=== PATIENT | female | born 1990 | race Caucasian/White ===

== ENCOUNTER → 2017-07-05 | Outpatient (CLI) | payer BC ==
[~2017-07-05] MED LIST: CEPH250REC PO; HYCE0.1S PO; IBUP1TAB7 PO; IBUP80TA PO; MOM30SS PO; PERCOCET PO
== END ==
LOC: M LAB 09:11
PROVIDERS: ATTEND Obstetrics & Gynecology Gynecology
DX: Z15.01 Genetic susceptibility to malignant neoplasm of breast (principal); Z15.02 Genetic susceptibility to malignant neoplasm of ovary

== ENCOUNTER → 2017-07-06 | Outpatient (CLI) | payer BC ==
--- NOTE | 2017-07-06 15:33 | REP ---
PELVIC ULTRASOUND: Real-time sonographic evaluation of the pelvis performed utilizing transabdominal and endovaginal technique. The bladder measures 10.7 x 8.4 x 9.2 cm. The uterus measures 9.1 x 2.9 x 5.3 cm. Endometrial thickness is 3 mm. There is no endometrial fluid collection. Ovaries appear normal in size and echotexture, right ovary measuring 3.1 x 2.0 x 1.5 cm and left ovary 3.6 x 2.7 x 2.8 cm. There is no adnexal mass or free fluid. Blood flow is seen in each ovary with duplex Doppler evaluation, right ovary 0.59 and left ovary 0.63. IMPRESSION: Negative pelvic ultrasound. No ovarian mass. No free fluid. Signed by Perfecto Farah MD 07/06/2017 04:14 P
== END ==
LOC: M RAD 12:47
PROVIDERS: ATTEND Obstetrics & Gynecology Gynecology
DX: Z15.02 Genetic susceptibility to malignant neoplasm of ovary (principal)

== ENCOUNTER → 2017-08-09 | Outpatient (REF) | payer SELFPAY ==
[2017-08-09 12:32] LABS: CONTROL LINE UCG INT CTR LINE PRESENT
== END ==
LOC: M LAB REF 11:53
PROVIDERS: ATTEND Physician Assistant Medical
DX: R10.84 Generalized abdominal pain (principal)

== ENCOUNTER → 2017-08-14 | Outpatient (CLI) | payer BC ==
--- NOTE | 2017-08-14 09:27 | REP ---
ULTRASOUND ABDOMEN: Real-time sonographic evaluation of the abdomen performed. Gallbladder demonstrates no evidence of intraluminal sludge or calculi, wall thickening, or pericholecystic fluid. There is no intrahepatic or extrahepatic biliary dilatation, common bile duct measuring 4 mm in diameter. The liver and pancreas demonstrate no gross mass, pancreatic tail is not well seen due to overlying bowel gas. Spleen is normal in size with no intrinsic abnormality, length is 12.0 cm. Kidneys are normal in size and echotexture, right kidney measuring 12.1 x 4.7 x 3.8 cm and left kidney 11.9 x 4.6 x 4.9 cm. Abdominal aorta is normal in caliber with no aneurysm, proximally AP diameter is 1.7 cm, mid aspect 1.4 cm and distally 1.1 cm. No free fluid is seen. IMPRESSION: Negative abdominal ultrasound. Signed by Perfecto Farah MD 08/14/2017 01:22 P
== END ==
LOC: M RAD 07:18
PROVIDERS: ATTEND Physician Assistant Medical
DX: R10.84 Generalized abdominal pain (principal)

== ENCOUNTER → 2018-04-19 | Outpatient (CLI) | payer OTHER ==
[2018-04-19 12:47] LABS: BASO % 0.4 % (0.0-1.0); EOS # 0.1 10^3/uL (0.0-0.50); EOS % 1.2 % (0.0-3.0); HEMATOCRIT 33.9 % (36.0-47.0); HEMOGLOBIN 11.9 g/dl (12.0-15.5); IMMATURE GRANULOCYTE % 0.3 % (0-3.0); LYMPH % 27.1 % (24.0-44.0); MEAN CORPUSCULAR HEMOGLOBIN 30.1 pg (27.0-33.0); MEAN CORPUSCULAR HGB CONC 35.1 g/dl (32.0-36.5); MEAN CORPUSCULAR VOLUME 85.6 fl (80.0-96.0); MONO # 0.5 10^3/uL (0.0-0.8); NEUTROPHILS # 4.9 10^3/uL (1.8-7.7); PLATELET COUNT, AUTOMATED 298 10^3/uL (150-450); RED BLOOD COUNT 3.96 10^6/uL (4.00-5.40); RED CELL DISTRIBUTION WIDTH 12.2 % (11.5-14.5); WHITE BLOOD COUNT 7.5 10^3/uL (4.0-10.0)
[2018-04-19 13:18] LABS: HBsAg Prenatal NEGATIVE (NEGATIVE); RUBELLA IgG QUALITATIVE IMMUNE (IMMUNE)
[2018-04-19 13:46] LABS: HEPATITIS C VIRUS ABY INDEX 0.1 INDEX (<0.8)
[2018-04-19 13:47] LABS: HIV 1&2 SCREEN CENTAUR NEGATIVE (NEGATIVE)
[2018-04-19 15:59] LABS: CHLAMYDIA DNA AMPLIFICATION NEGATIVE (NEGATIVE); GC DNA AMPLIFICATION NEGATIVE (NEGATIVE)
== END ==
LOC: M SMT 11:07
DX: Z36.89 Encounter for other specified antenatal screening (principal); Z3A.08 8 weeks gestation of pregnancy
CPT/HCPCS: 86762

== ENCOUNTER → 2018-06-04 | Outpatient (CLI) | payer OTHER, MEDICAID | LOC: M RAD 14:53 | DX: Z34.82 Encounter for supervision of other normal pregnancy, second trimester (principal) ==

== ENCOUNTER → 2018-06-25 | Outpatient (CLI) | payer OTHER, MEDICAID | LOC: M RAD 15:33 | DX: Z34.82 Encounter for supervision of other normal pregnancy, second trimester (principal); Z36.89 Encounter for other specified antenatal screening; Z3A.21 21 weeks gestation of pregnancy ==

== ENCOUNTER 2018-08-12 13:01 | Outpatient (RCR) | payer OTHER, MEDICAID | END 2018-08-30 | LOC: M ST 08-16 12:30 | DX: R49.0 Dysphonia (principal) ==

== ENCOUNTER → 2018-08-12 | Outpatient (CLI) | payer OTHER, MEDICAID ==
[2018-08-12 13:12] LABS: HEMATOCRIT 30.3 % (36.0-47.0); HEMOGLOBIN 10.4 g/dl (12.0-15.5); MEAN CORPUSCULAR HEMOGLOBIN 30.3 pg (27.0-33.0); MEAN CORPUSCULAR HGB CONC 34.3 g/dl (32.0-36.5); MEAN CORPUSCULAR VOLUME 88.3 fl (80.0-96.0); PLATELET COUNT, AUTOMATED 240 10^3/uL (150-450); RED BLOOD COUNT 3.43 10^6/uL (4.00-5.40); RED CELL DISTRIBUTION WIDTH 12.3 % (11.5-14.5); WHITE BLOOD COUNT 10.2 10^3/uL (4.0-10.0)
[2018-08-12 13:32] LABS: GLUCOSE CHALLENGE TEST 1 HOUR 134 MG/DL (LESS THAN 140)
== END ==
LOC: M LAB 11:46
DX: Z34.82 Encounter for supervision of other normal pregnancy, second trimester (principal); Z3A.00 Weeks of gestation of pregnancy not specified
CPT/HCPCS: 82950

== ENCOUNTER → 2018-10-04 | Outpatient (REF) | payer OTHER, MEDICAID ==
[~2018-10-04] MED LIST changes: +PRENTAB29 PO
== END ==
LOC: M LAB REF 17:13
PROVIDERS: ATTEND Obstetrics & Gynecology
DX: Z34.83 Encounter for supervision of other normal pregnancy, third trimester (principal)

== ENCOUNTER 2018-10-27 06:45 | Inpatient (IN) | payer OTHER, MEDICAID ==
[~2018-10-27] VITALS: Ht 160 cm; Wt 79.6 kg
[2018-10-27] VITALS (9 sets, daily range): BP systolic 110–139; BP diastolic 56–84
[2018-10-27] MEDS ORDERED: ceFAZolin 2 GM/D5W 50 ML IV BAG (J0690 PER 500MG) As Ordered ONE (07:11)
[2018-10-27] MEDS ORDERED: BICITRA 30ML SOLN UDC As Ordered ONE (07:11)
[2018-10-27] MEDS ORDERED: BICITRA 30ML SOLN UDC PO ONE (07:30)
[2018-10-27 07:34] LABS: HEMATOCRIT 30.9 % (36.0-47.0); HEMOGLOBIN 10.1 g/dl (12.0-15.5); MEAN CORPUSCULAR HEMOGLOBIN 26.6 pg (27.0-33.0); MEAN CORPUSCULAR HGB CONC 32.7 g/dl (32.0-36.5); MEAN CORPUSCULAR VOLUME 81.5 fl (80.0-96.0); PLATELET COUNT, AUTOMATED 218 10^3/uL (150-450); RED BLOOD COUNT 3.79 10^6/uL (4.00-5.40); WHITE BLOOD COUNT 8.9 10^3/uL (4.0-10.0)
[2018-10-27] MEDS ORDERED: BUTORPHANOL 2 MG/ML INJ (J0595) IV ONE (08:00)
--- NOTE | 2018-10-27 09:39 | NUR ---
L&D H&P HPI: 28 year old at 39+0 weeks estimated gestation. Expected date of confinement: 11/03/2018. dated by LMP, which was consistent with a first trimester ultrasound. Presents today with painful uterine contractions and spontaneous rupture of membranes, clear fluid noted approximately 1 hour rosie or to her arrival. Denies vaginal bleeding. Reports regular movement. course notable for history of one prior low transverse section and she is declining a trial of labor. labs: Blood type O+, antibody screen negative, rubella immune, VDRL nonreactive , hepatitis B surface antigen negative, HIV negative, hepatitis C antibody negative, GC/CT negative, aneuploidy/maternal serum screening: Not done, 1 hour glucose challenge test: 134, GBS negative Vaccinations: Tdap 09/18/2018 Radiology/OB US: no anomalies or placental abnormalities detected. History Past medical history: None, BRCA1 carrier Surgical history: Low transverse section 1, D&C, tonsillectomy Medications:. 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 No tobacco, alcohol or drug use Family history:. BRCA1 Objective Vitals: Normotensive, normal heart rate, afebrile Heart: Regular rate and rhythm. No murmurs, rubs or gallops. Lungs: Clear to auscultation bilaterally. No wheezes, crackles, rales or rhonchi. Abdomen: Uterine fundal height consistent with dates. No guarding or rebound tenderness. Extremities: No clubbing, cyanosis or edema. Normal deep tendon reflexes. Sterile vaginal exam: 2 cm, 50 %effacement, -3 station, cephalic, grossly ruptured with clear fluid. +nitrazine & ferning External monitoring: heart rate category 1 Tocodynamometer: contractions occurring every 2-5 minutes Assessment/Plan 28 year old at 39+0 weeks gestation. Diagnosis: Spontaneous rupture of membranes, early labor. Reassuring and maternal status. -Admit to labor and delivery with routine preop labs and orders -External monitoring and tocodynamometer -Pediatrics and anesthesia notified -Preparations for the OR are being made Dr. Derrick Garcia, DO, FACOG
[2018-10-27] MEDS ORDERED: BUPIVACAINE/DEXTROSE 0.75% 2 ML AMP As Ordered ONE (10:20)
[2018-10-27] MEDS ORDERED: diphenhydrAMINE INJ 50MG/ML VIAL (J1200) IV PRN (10:25)
[2018-10-27] MEDS ORDERED: NALBUPHINE HCL 10 MG/ML AMP (J2300) IV PRN (10:25)
[2018-10-27] MEDS ORDERED: NALOXONE INJ 0.4 MG/1 ML VIAL (J2310) IV PRN ×2 (10:25)
[2018-10-27] MEDS ORDERED: ONDANSETRON 4MG/2ML VIAL (J2405) IV PRN ×2 (10:25→11:45)
[2018-10-27] MEDS ORDERED: METOCLOPRAMIDE INJ 10MG/2ML VIAL (J2765) IV PRN (10:25)
[2018-10-27] MEDS ORDERED: AZITHROMYCIN INJ 500 MG, VIAL MATE ADAPTER 1 EACH in D5W 250 ML IV ONE (11:00)
[2018-10-27] MEDS ORDERED: PHENYLephrine HCL 500 MCG/5 ML (100MCG/ML) SYRINGE (J2370) As Ordered ONE (11:02)
[2018-10-27] MEDS ORDERED: dexameTHASONE 4 MG/ML 1ML VIAL (J1100) As Ordered ONE (11:02)
[2018-10-27] MEDS ORDERED: ONDANSETRON 4MG/2ML VIAL (J2405) As Ordered ONE (11:02)
[2018-10-27] MEDS ORDERED: MORPHINE PRES-FREE INJ 10 MG/10 ML VIAL (J2274) As Ordered ONE (11:02)
[2018-10-27] MEDS ORDERED: OXYTOCIN INJ 10 UNITS/ML VIAL (J2590) As Ordered ONE (11:03)
[2018-10-27] MEDS: LR 1,000 ML IV SCH ×2 (11:36→19:36)
[2018-10-27] MEDS ORDERED: OXYTOCIN DRIP 30 UNITS in APPROPRIATE DILUENT 1 EA IV SCH (11:36)
[2018-10-27] MEDS ORDERED: PERCOCET PO (11:40)
[2018-10-27] MEDS ORDERED: COLA100C5 PO (11:42)
[2018-10-27] MEDS ORDERED: IBUP80TA PO (11:42)
[2018-10-27] MEDS ORDERED: MEASLES,MUMPS,RUBELLA VACCINE INJ (MMR-II) (90707) SC SCH (11:45)
[2018-10-27] MEDS ORDERED: PROMETHAZINE 25 MG TAB PO PRN (11:45)
[2018-10-27] MEDS ORDERED: PERCOCET 5MG/325MG TAB PO PRN (11:45)
[2018-10-27] MEDS ORDERED: RHOGAM 300 MCG (1500 IU) INJ (J2790) IM SCH (11:45)
--- NOTE | 2018-10-27 11:46 | NUR ---
Operative Note Date of procedure: 10/27/2018 Procedure:, Elective repeat low-transverse section Anesthesia: Spinal Preoperative diagnoses: 1. 39+0 weeks gestation, early active labor with ruptured membranes. 2. Declines trial of labor Postoperative diagnosis: Same as preoperative Indication: History of previous low transverse section, active labor, declines TOLAC Primary surgeon: Derrick Garcia D.O., Romeo Asif Addictions Counselor Assistant: Deandre Garcia MD (essential for surgical site exposure and control of bleeding) Estimated blood loss: 500 ml IV fluids administered: 700 ml crystalloid Drains: Meraz catheter. Urine output:120 ml [place] data: Apgars 9 and 9. Birthweight 3980g, 8lbs 12oz. Female. Preoperative/prophylactic antibiotics: Ancef 2 g IV (given within 30 minutes prior to surgical start time). Azithromycin 500mg IV x 1. Intraoperative findings: normal uterus and bilateral adnexa/ovaries, minimal adhesive disease. Specimen(s): none Procedure: The patient was counseled and consented on the risks, benefits, indications and alternatives of the procedure. Informed consent was obtained and placed in the c mosquera. She was taken to the operating room with an IV running. She was placed on the operating table. Spinal anesthesia was administered without any difficulty and found to be adequate. She was placed in the dorsal supine position with a leftward tilt. Sequential compression devices were placed on the lower extremities. A Meraz catheter was placed under sterile conditions. She was sterilely prepped and draped. A surgical timeout was performed per protocol. Spinal anesthesia was again found to be adequate. Using the 10 blade a Pfannenstiel incision was performed. The 10 blade was used to dissect down to the level of the rectus sheath fascia. The rectus sheath fas hilda was incised at the midline, and the fascial incision was extended with Agee scissors. [place] clamps were used to grasp the superior and inferior aspect of the fascial incision and the rectus muscle bellies were dissected off sharply and bluntly. The midline was identified and the rectus muscle bellies were manually . The peritoneum was identified and clamped with hemostats and elevated. The peritoneum was then incised with Metzenbaum scissors. Entry into the intraperitoneal cavity was achieved. The peritoneal op ening was extended with manual stretch . There was good visualization of both the bladder and the lower uterine segment. The bladder retractor was placed. The vesicouterine peritoneum was dissected with Metzenbaum scissors and blunt dissection. Bladder retractor was repositioned. A low transverse uterine incision was made with a new 10 blade. The hysterotomy was extended with manual stretch. The amniotic sac was protruding and then artificially ruptured. Clear amniotic fluid was noted. The baby's head delivered through the hysterotomy with ease. The remainder of the body delivered with ease. The cord was doubly clamped and cut and the baby was handed off to awaiting care. See data above. Cord blood was obtained . The placenta was manually removed and noted to be fully intact. The uterus was exteriorized. The intrauterine cavity was cleared of all clot and debris with a laparotomy sponge. The hysterotomy was closed with 0 Vicryl in running, locked fashion. A second imbricating closure was performed over the initial layer closure using 0 Vicryl. The hysterotomy was noted to be hemostatic. The posterior cul-de-sac was irrigated and cleared of all clot and debris. The uterus was replaced back into the abdomen. The paracolic gutters were cleared of all clot and debris with damp laparotomy sponges. The hysterotomy is reinspected and noted to be hemostatic. Sponge, needle and instrument counts were correct. The peritoneum was closed with 3-0 Vicryl in running fashion. The rectus muscle bellies were reapproximated with 3-0 Vicryl with a series of interrupted sutures. The rectus muscle bellies were noted to be hemostatic. The fascia was closed with 0 Vicryl in running fashion. Sponge, needle and instrument counts were again correct. The subcutaneous layer was irrigated. Small subcutaneous bleeders were cauterized with Bovie. The subcutaneous layer was reapproximated with 3-0 Vicryl in running fashion. The skin was closed with 3-0 Monocryl in subcuticular fashion. A bandage was placed over the closed incision. The final sponge, instrument and needle count was correct. She tolerated the entire procedure very well. She was transferred to the PACU in good and stable condition. Dr. Derrick Garcia D.O., F.Alan.Terry.O.G
[2018-10-27] MEDS ORDERED: OXYTOCIN 30 UNITS IN 0.9% NaCl 500ML IV BAG (J2590) As Ordered ONE (11:58)
[2018-10-27] MEDS ORDERED: fentaNYL 100 MCG/2 ML INJECTION (J3010) IV PRN (12:00)
[2018-10-27] MEDS ORDERED: KETOROLAC 30 MG/ML VIAL (J1885) As Ordered ONE (12:27)
[2018-10-27] MEDS: KETOROLAC 30 MG/ML VIAL (J1885) IV SCH ×2 (12:30→18:27)
[2018-10-27] MEDS: DOCUSATE SODIUM 100 MG CAP PO SCH (22:22)
[2018-10-28] MEDS: KETOROLAC 30 MG/ML VIAL (J1885) IV SCH ×2 (00:28→06:15)
[2018-10-28 02:10] VITALS: BP 107/56
[2018-10-28 06:14] VITALS: BP 105/55
[2018-10-28 07:04] LABS: HEMATOCRIT 26.3 % (36.0-47.0); HEMOGLOBIN 8.6 g/dl (12.0-15.5); MEAN CORPUSCULAR HEMOGLOBIN 26.5 pg (27.0-33.0); MEAN CORPUSCULAR HGB CONC 32.7 g/dl (32.0-36.5); MEAN CORPUSCULAR VOLUME 80.9 fl (80.0-96.0); PLATELET COUNT, AUTOMATED 230 10^3/uL (150-450); RED BLOOD COUNT 3.25 10^6/uL (4.00-5.40); WHITE BLOOD COUNT 17.5 10^3/uL (4.0-10.0)
--- NOTE | 2018-10-28 07:22 | NUR ---
Postoperative Day 1 Status post repeat low transverse section, uncomplicated. Subjective Pain is well controlled. Lochia is decreasing and minimal. Voiding spontaneously. Tolerating a regular diet. Ambulating without any assistance. Denies any subjective fever, chills, nausea, vomiting, headache, visual changes, shortness of breath, chest pain. Breast feeding. Objective Vitals: Normotensive, normal heart rate, afebrile, adequate urine output. Heart: regular, rate, and rhythm. no murmurs/gallops/rubs Lungs: clear to auscultation bilaterally, no wheezes/crackles/rales/ronchi Abd: soft, nontender, nondistended, uterine fundus is 2cm below umbilicus and firm Incision: clean, dry, intact Ext: no significant edema, nontender, negative Mignon's bilaterally. Preoperative H/H: 10.1/30.9 Postoperative H/H: 8.6/26.3 Assessment/Plan: Postoperative day 1 status post repeat low transverse section. Recovering well. Hemodynamically stable, afebrile, good pain control. -Routine care -Discharge to home tomorrow. -Routine infectious, fever, pain, and bleeding precautions reviewed -Incision/wound care precautions reviewed. Alba Ugalde.O., F.A.C.O.G.
[2018-10-28] MEDS: PRENATAL VITAMINS CHEWABLE TABLET PO SCH (08:59)
[2018-10-28] MEDS: DOCUSATE SODIUM 100 MG CAP PO SCH ×2 (08:59→21:43)
[2018-10-28] MEDS: PERCOCET 5MG/325MG TAB PO PRN ×2 (08:59→16:38)
[2018-10-28 10:00] VITALS: BP 125/65
[2018-10-28 14:00] VITALS: BP 110/62
[2018-10-28] MEDS: IBUPROFEN 800 MG TAB PO SCH ×2 (15:27→22:40)
[2018-10-28 18:00] VITALS: BP 124/68
[2018-10-28 22:00] VITALS: BP 109/60
[2018-10-29 02:00] VITALS: BP 120/72
[2018-10-29 06:05] VITALS: BP 110/60
[2018-10-29] MEDS: IBUPROFEN 800 MG TAB PO SCH (06:35)
--- NOTE | 2018-10-29 07:13 | DS.PDOC ---
Discharge Summary General Date of Admission Oct 27, 2018 at 07:09 Date of Discharge 10/29/2018 Discharge Summary PROCEDURES PERFORMED DURING STAY: repeat section ADMITTING DIAGNOSES: 1. IUP at 39 weeks gestation 2. active labor 3. prior repeat -desires repeat DISCHARGE DIAGNOSES: 1. Day 2 postoperative COMPLICATIONS/CHIEF COMPLAINT: Srom? Contractions. HISTORY OF PRESENT ILLNESS: Patient is a 28-year-old female who is a at 39 weeks gestation who presents to L&D in active labor. She desires to repeat her section. DISCHARGE MEDICATIONS: Please see below. PHYSICAL EXAMINATION ON DISCHARGE: VITAL SIGNS: Please see below. GENERAL: A+Ox3 RESPIRATORY EXAMINATION: regular rate and rhythm. ABDOMINAL EXAMINATION: Fundus firm at 2 below umbilicus. Dressing still applied to site. EXTREMITIES: generalized edema bilateral feet and legs. SKIN: warm, dry, without any unusual rashes. LABORATORY DATA: Please see below. ACTIVITY: As tolerated. DIET: regular DISCHARGE INSTRUCTIONS: 1. Patient to be discharged home. She is to follow-up in the office in 2 weeks and 6 weeks. 2. Education done on dressing removal-removal on day 5 . 3. Education done on mastitis, fever, DVT, pulmonary edema, hemorrhage, infection at the incision site, and cleaning of incision. DISCHARGE CONDITION: Stable. Vital Signs/I&Os Vital Signs Date Time Temp Pulse Resp B/P (MAP) Pulse Ox O2 Delivery O2 Flow Rate FiO2 10/29/18 06:05 98.3 72 17 110/60 (77) 10/28/18 18:00 99 10/28/18 08:59 Room Air Laboratory Data CBC/BMP Item Value Date Time White Blood Count 17.5 10^3/uL H 10/28/18627 Red Blood Count 3.25 10^6/uL L 10/28/18627 Hemoglobin 8.6 g/dl L 10/28/18627 Hematocrit 26.3 % L 10/28/18627 Mean Corpuscular Volume 80.9 fl 10/28/18627 Mean Corpuscular Hemoglobin 26.5 pg L 10/28/18627 Mean Corpuscular Hemoglobin Concent 32.7 g/dl 10/28/18627 Red Cell Distribution Width 13.1 % 10/28/18627 Platelet Count 230 10^3/uL 1/28/19 0628 Discharge Medications Scheduled Docusate Sodium (Colace) 100 Mg Cap, 100 MG PO BID Ibuprofen (Ibuprofen) 800 Mg Tab, 800 MG PO TID for pain Multivitamins/ ( 27-0.8 mg) 1 Tab Tab, 1 TAB PO DAILY, (Reported) Scheduled PRN Oxycodone/Acetaminophen (Percocet 5MG/325MG Tablet) 1 Tab Tab, 1 TAB PO QIDP PRN for pain Allergies Coded Allergies: No Known Drug Allergy (Verified Allergy, Unknown, 10/04/15) PAUL GARRETT CNM Oct 29, 2018 07:13
[2018-10-29] MEDS: DOCUSATE SODIUM 100 MG CAP PO SCH (09:01)
[2018-10-29] MEDS: PRENATAL VITAMINS CHEWABLE TABLET PO SCH (09:01)
[2018-10-29] MEDS ORDERED: medroxyPROGESTERone ACET IM SUSP 150 MG/ML VIAL (J1050) IM ONE (09:30)
== END 2018-10-29 10:30 | disposition home or self-care (01) | DRG 788 ==
LOC: M LDO 06:45 → M LDI 07:09 → M OBS 13:00
PROVIDERS: ADMIT Obstetrics & Gynecology; ATTEND Obstetrics & Gynecology
PROC: 10D00Z1 Extraction of Products of Conception, Low, Open Approach (ICD-10-PCS; principal; 2018-10-27)
DX: O34.211 Maternal care for low transverse scar from previous cesarean delivery (principal); Z3A.39 39 weeks gestation of pregnancy; O75.82 Onset (spontaneous) of labor after 37 completed weeks of gestation but before 39 completed weeks gestation, with delivery by (planned) cesarean section; Z37.0 Single live birth

== ENCOUNTER → 2019-02-21 | Outpatient (REF) | payer OTHER, MEDICAID ==
[~2019-02-21] MED LIST changes: +COLA100C5 PO
[2019-02-21 21:31] LABS: APPEARANCE, URINE CLEAR (CLEAR); BACTERIA, URINE AUTO NEGATIVE (NEGATIVE); BILIRUBIN, URINE AUTO NEGATIVE (NEGATIVE); BLOOD, URINE BLOOD NEGATIVE (NEGATIVE); COLOR, URINE STRAW (YELLOW); GLUCOSE, URINE (UA) AUTO NEGATIVE (NEGATIVE); KETONE, URINE AUTO NEGATIVE (NEGATIVE); LEUKOCYTE ESTERASE, URINE AUTO NEGATIVE (NEGATIVE); NITRITE, URINE AUTO NEGATIVE (NEGATIVE); PROTEIN, URINE AUTO NEGATIVE (NEGATIVE); RBC, URINE AUTO 1 /HPF (0-3); SPECIFIC GRAVITY URINE AUTO 1.005 (1.002-1.035); SQUAMOUS EPITHELIAL CELL UR AU 0 /HPF (0-6); UROBILINOGEN, URINE AUTO 0.2 mg/dL (0.0-2.0); WBC, URINE AUTO 1 /HPF (0-3)
== END ==
LOC: M SFHCADAM 15:53
PROVIDERS: ATTEND Physician Assistant
DX: N30.00 Acute cystitis without hematuria (principal)

== ENCOUNTER → 2019-02-22 | Outpatient (REF) | payer OTHER, MEDICAID | LOC: M LAB REF 10:00 | PROVIDERS: ATTEND Physician Assistant | DX: K92.1 Melena (principal); R19.7 Diarrhea, unspecified ==

== ENCOUNTER → 2019-03-28 | Outpatient (REF) | payer OTHER, MEDICAID ==
[2019-03-28 14:31] LABS: HEMATOCRIT 40.8 % (36.0-47.0); HEMOGLOBIN 13.5 g/dl (12.0-15.5); MEAN CORPUSCULAR HEMOGLOBIN 28.2 pg (27.0-33.0); MEAN CORPUSCULAR HGB CONC 33.1 g/dl (32.0-36.5); MEAN CORPUSCULAR VOLUME 85.4 fl (80.0-96.0); PLATELET COUNT, AUTOMATED 298 10^3/uL (150-450); RED BLOOD COUNT 4.78 10^6/uL (4.00-5.40); WHITE BLOOD COUNT 5.4 10^3/uL (4.0-10.0)
[2019-03-28 14:44] LABS: ALT/SGPT 37 U/L (12-78); BILIRUBIN,TOTAL 0.3 MG/DL (0.2-1.0); BLOOD UREA NITROGEN 10 MG/DL (7-18); CALCIUM LEVEL 8.7 MG/DL (8.5-10.1); CARBON DIOXIDE LEVEL 26 MEQ/L (21-32); CHLORIDE LEVEL 109 MEQ/L (98-107); CREATININE FOR GFR 0.78 MG/DL (0.55-1.30); FREE T4 0.88 NG/DL (0.76-1.46); GLOMERULAR FILTRATION RATE > 60.0 (>60); GLUCOSE, FASTING 95 MG/DL (70-100); POTASSIUM SERUM 4.5 MEQ/L (3.5-5.1); SODIUM LEVEL 140 MEQ/L (136-145); TOTAL PROTEIN 7.5 GM/DL (6.4-8.2)
== END ==
LOC: M SFHCADAM 08:46
PROVIDERS: ATTEND Physician Assistant
DX: K92.1 Melena (principal); R19.7 Diarrhea, unspecified; J32.9 Chronic sinusitis, unspecified; F32.1 Major depressive disorder, single episode, moderate; N30.00 Acute cystitis without hematuria

== ENCOUNTER → 2019-06-20 | Outpatient (CLI) | payer OTHER, MEDICAID ==
--- NOTE | 2019-06-20 16:27 | REP ---
REASON: Positive genetic testing for potential for potential ovarian disease. There are no pertinent priors for comparison. The patients latest prior exam was 07/06/2017. Today's examination was obtained using transvesical and transvaginal imaging. The uterus measures 8.7 x 4.5 x 4.8 cm. The uterine parenchymal echo pattern is within normal limits. The endometrial echo complex is unremarkable appearing measuring 3 mm in thickness. The right ovary measures 1.8 x 1.3 x 2.6 cm and is within normal limits. The left ovary measures 3.3 x 1.5 x 1.9 cm and is within normal limits. IMPRESSION: Pelvic ultrasonography is within normal limits. Electronically Signed by Aamir Washington DO 06/20/2019 04:39 P
== END ==
LOC: M RAD 14:34
PROVIDERS: ATTEND Obstetrics & Gynecology Gynecology
DX: Z15.02 Genetic susceptibility to malignant neoplasm of ovary (principal); Z15.09 Genetic susceptibility to other malignant neoplasm; Z15.01 Genetic susceptibility to malignant neoplasm of breast

== ENCOUNTER → 2019-10-02 | Outpatient (REF) | payer OTHER, MEDICAID | LOC: M LAB REF 18:37 | PROVIDERS: ATTEND Dermatology | DX: D48.9 Neoplasm of uncertain behavior, unspecified (principal) ==

== ENCOUNTER 2019-11-03 15:05 | Emergency (ER) | payer MEDICAID, OTHER ==
[~2019-11-03] VITALS: Ht 160 cm; Wt 64.6 kg
[2019-11-03] MEDS ORDERED: DESO1TAB5 (15:52)
[2019-11-03 15:56] LABS: HEMATOCRIT 39.4 % (36.0-47.0); MEAN CORPUSCULAR HEMOGLOBIN 28.7 pg (27.0-33.0); PLATELET COUNT, AUTOMATED 228 10^3/uL (150-450); RED BLOOD COUNT 4.53 10^6/uL (4.00-5.40); WHITE BLOOD COUNT 4.2 10^3/uL (4.0-10.0)
[2019-11-03] MEDS ORDERED: KETOROLAC 30 MG/ML VIAL (J1885) IV ONE (16:15)
[2019-11-03] MEDS ORDERED: GI COCKTAIL 50ML BTL(HYOSCYAMINE/MAALOX/LIDOCAINE VISCOUS)(1:3:1) PO ONE (16:15)
[2019-11-03] MEDS ORDERED: NS 1,000 ML IV ONE (16:15)
[2019-11-03 16:25] LABS: INFLUENZA A AMPLIFICATION NEGATIVE (NEGATIVE); INFLUENZA B AMPLIFICATION POSITIVE (NEGATIVE)
[2019-11-03 16:29] LABS: HCG, SERUM QUALITATIVE NEGATIVE (NEGATIVE)
[2019-11-03 16:40] LABS: ALBUMIN 3.9 GM/DL (3.2-5.2); ALT/SGPT 25 U/L (12-78); BILIRUBIN,DIRECT 0.1 MG/DL (0.0-0.2); BILIRUBIN,TOTAL 0.3 MG/DL (0.2-1.0); BLOOD UREA NITROGEN 13 MG/DL (7-18); CALCIUM LEVEL 8.6 MG/DL (8.5-10.1); CARBON DIOXIDE LEVEL 22 MEQ/L (21-32); CHLORIDE LEVEL 106 MEQ/L (98-107); CK-MB VALUE MASS < 1.0 NG/ML (<3.6); CPK CREATINE PHOSPHOKINASE 46 U/L (26-192); FREE T4 1.25 NG/DL (0.76-1.46); GLOMERULAR FILTRATION RATE > 60.0 (>60); GLUCOSE, FASTING 83 MG/DL (70-100); LIPASE 72 U/L (73-393); MB/CK RELATIVE INDEX 2.17 (< OR =4); NT-PRO BNP 16 PG/ML (<125); POTASSIUM SERUM 4.2 MEQ/L (3.5-5.1); SODIUM LEVEL 137 MEQ/L (136-145); THYROID STIMULATING HORMONE 0.609 uIU/ML (0.358-3.740); TOTAL PROTEIN 7.7 GM/DL (6.4-8.2); TROPONIN I < 0.02 NG/ML (< 0.10)
[2019-11-03] MEDS ORDERED: ISOVUE-370 76% 100ML VIAL (Q9967) As Ordered ONE (17:00)
--- NOTE | 2019-11-03 17:35 | REPVR ---
PROCEDURE INFORMATION: Exam: CT Abdomen And Pelvis With Contrast Exam date and time: 11/03/2019 5:06 PM Age: 29 years old Clinical indication: Abdominal pain; Epigastric; Additional info: Epigastric pain TECHNIQUE: Imaging protocol: Computed tomography of the abdomen and pelvis with intravenous contrast. Axial, coronal and sagittal reformatted images were created and reviewed. Radiation optimization: All CT scans at this facility use at least one of these dose optimization techniques: automated exposure control; mA and/or kV adjustment per patient size (includes targeted exams where dose is matched to clinical indication); or iterative reconstruction. Contrast material: ISOVUE 370; Contrast volume: 100 ml; Contrast route: IV; COMPARISON: Transvaginal NON- US 06/20/2019 2:53 PM FINDINGS: Liver: [id number] hepatomegaly. Diffuse hepatic steatosis. Ill-defined focus of hyperattenuation at the periphery of the right hepatic lobe, measuring approximately 2.9 x 2.1 cm, possibly due to focal sparing or a cavernous hemangioma. Gallbladder and bile ducts: No radiodense gallstones. No biliary ductal dilatation. Pancreas: Unremarkable. Spleen: Mild splenomegaly. Heterogeneous splenic enhancement. Adrenals: Unremarkable. Kidneys and ureters: No mass. No radiodense calculi. No hydronephrosis. Stomach and bowel: No bowel wall thickening. No obstruction. No pneumatosis. Appendix: Appendix not identified with certainty but no right lower quadrant inflammatory change to suggest acute appendicitis. Intraperitoneal space: Trace nonspecific free pelvic fluid, likely physiologic. No organized fluid collection. No free air. Vasculature: Unremarkable. No aneurysm. Lymph nodes: No pathologically enlarged lymph nodes. Bladder: Unremarkable. Reproductive: Unremarkable. Bones/joints: No acute osseous abnormality. Mild degenerative changes. Soft tissues: Unremarkable. IMPRESSION: 1. Hepatomegaly and diffuse hepatic steatosis. Correlate with LFTs. 2. Ill-defined focus of hyperattenuation at the periphery of the right hepatic lobe, measuring approximately 2.9 x 2.1 cm, possibly due to focal sparing or a cavernous hemangioma. If clinically indicated, multiphasic CT scan or MRI may be obtained. 3. Splenomegaly and heterogeneous splenic enhancement, possibly secondary to the phase of enhancement, underlying infiltrative lesion cannot be excluded. Consider MRI for further evaluation. 4. Additional findings, as above. Electronically signed by: Kahlil Ibarra On 11/03/2019 17:34:59 PM
--- NOTE | 2019-11-03 17:45 | REPVR ---
PROCEDURE INFORMATION: Exam: CT Angiography Chest With Contrast Exam date and time: 11/03/2019 4:12 PM Age: 29 years old Clinical indication: Shortness of breath; Chest pain; Additional info: R/O pe/chest pain/sob/tachy TECHNIQUE: Imaging protocol: Computed tomographic angiography of the chest with intravenous contrast. Axial, coronal and sagittal reformatted images were created and reviewed. 3D rendering: MIP and/or 3D reconstructed images were created by the technologist. Radiation optimization: All CT scans at this facility use at least one of these dose optimization techniques: automated exposure control; mA and/or kV adjustment per patient size (includes targeted exams where dose is matched to clinical indication); or iterative reconstruction. Contrast material: ISOVUE 370; Contrast volume: 100 ml; Contrast route: IV; COMPARISON: CR Chest, 2 view PA, Lat 09/02/2014 8:10 PM FINDINGS: Pulmonary arteries: Contrast opacification satisfactory. No intraluminal filling defect. Aorta: Unremarkable. No aneurysm or dissection. Lungs: Minimal dependent atelectatic change. No consolidation. Left lower lobe calcified granuloma. Pleural space: Unremarkable. No pneumothorax. No pleural effusion. Heart: Unremarkable. No cardiomegaly. No pericardial effusion. Lymph nodes: No pathologically enlarged lymph nodes. Bones/joints: No acute osseous abnormality. Mild degenerative changes. Soft tissues: Unremarkable. IMPRESSION: 1. No CT evidence of pulmonary embolism. 2. Additional findings, as above. Electronically signed by: Kahlil Ibarra On 11/03/2019 17:45:08 PM
[2019-11-03] MEDS ORDERED: OSEL75CA PO (18:08)
[2019-11-03] MEDS ORDERED: IBUP80TA PO (18:08)
[2019-11-03 18:51] VITALS: BP 133/78
--- NOTE | 2019-11-04 12:05 | ED PDOC ---
Post-Departure Follow-Up torres velásquez faxed formal report of c abd/p for fu Krysten Yeung MD Nov 04, 2019 12:05
== END 2019-11-03 18:53 | disposition home or self-care (01) ==
LOC: M ED 15:05
DX: J10.89 Influenza due to other identified influenza virus with other manifestations (principal); Z79.3 Long term (current) use of hormonal contraceptives
CPT/HCPCS: 71275; 74177; 80048; 80076; 82550; 82553; 83690; 83880; 84439; 84443; 84484; 84703; 85027; 87502; 96374; 99284; J1885; Q9967

== ENCOUNTER → 2020-01-19 | Outpatient (CLI) | payer OTHER ==
[~2020-01-19] MED LIST changes: +DESO1TAB5; +E-Z-GAS II EFFERVESCENT PACKET (SODIUM BICARB./CITRIC ACID/SIMETHICONE) As Ordered ONE; +E-Z-HD 98% w/w 340GM SUSP BTL As Ordered ONE; +E-Z-PAQUE 96% w/w SUSP 176GM BTL As Ordered ONE; +OSEL75CA PO
--- NOTE | 2020-01-19 13:13 | REP ---
UPPER GI AIR CONTRAST AND SMALL BOWEL FOLLOW THROUGH The procedure was performed under the direct supervision of Dr. Farah. The images were reviewed with Dr. Farah The television station manager film shows no organomegaly or pathological masses. The intestinal gas pattern is non-specific. There is umbilical jewelry. Liquid barium and gas producing crystals were given in the erect position as well as liquid barium in the prone oblique position in order to perform a double contrast upper GI examination. Additionally liquid barium was given at the end of the examination in order to perform a small bowel follow through. The oral and pharyngeal stages of deglutition are unremarkable. Esophageal transport is prompt and efficient and there is no esophagitis, stricture, mucosal ring or hiatal hernia. There is gastroesophageal reflux demonstrated to the level of the thoracic inlet. The stomach brown are normally outlined . The rugal folds are smooth and regular. There is no gastritis neoplasm or ulcer disease. In the duodenum there are thickened folds which likely represents duodenitis. There is no chaitanya ulcer identified. The visualized portion of the proximal small bowel appears normal in course and caliber. The barium column was followed through the small bowel to the level of the terminal ileum. Small bowel transit time is approximately 1 hour . During fluoroscopy gentle palpation shows all loops are freely movable and pliable. There are no fixed or angulated loops. The small bowel mucosal pattern is normal in course and caliber. There is no transition to suggest a partial small-bowel obstruction. Spot filming of the terminal ileum shows it to be unremarkable. Impression: 1. There is gastroesophageal reflux demonstrated to the level of the thoracic inlet. 2. There are thickened folds in the duodenum which likely represents duodenitis. There is no chaitanya ulcer identified. 2.2 minutes of fluoro time was utilized for this procedure. Electronically Signed by CAMERON Early 01/19/2020 12:48 P Electronically Signed by Perfecto Farah MD 01/19/2020 01:05 P
== END ==
LOC: M RAD 07:59
PROVIDERS: ATTEND Internal Medicine Gastroenterology
DX: R30.0 Dysuria (principal); R93.3 Abnormal findings on diagnostic imaging of other parts of digestive tract

== ENCOUNTER → 2020-02-11 | Outpatient (CLI) | payer OTHER ==
[~2020-02-11] MED LIST changes: -E-Z-GAS II EFFERVESCENT PACKET (SODIUM BICARB./CITRIC ACID/SIMETHICONE) As Ordered ONE; -E-Z-HD 98% w/w 340GM SUSP BTL As Ordered ONE; -E-Z-PAQUE 96% w/w SUSP 176GM BTL As Ordered ONE
[2020-02-11 11:04] LABS: HEMOGLOBIN A1c 4.8 %
[2020-02-11 11:06] LABS: ALT/SGPT 30 U/L (12-78); BILIRUBIN,TOTAL 0.7 MG/DL (0.2-1.0); BLOOD UREA NITROGEN 15 MG/DL (7-18); CALCIUM LEVEL 9.3 MG/DL (8.5-10.1); CARBON DIOXIDE LEVEL 26 MEQ/L (21-32); CHLORIDE LEVEL 107 MEQ/L (98-107); CHOLESTEROL LEVEL 233 MG/DL (<200); CHOLESTEROL RISK RATIO 3.148 (<5); CREATININE FOR GFR 0.86 MG/DL (0.55-1.30); GLOMERULAR FILTRATION RATE > 60.0 (>60); GLUCOSE, FASTING 93 MG/DL (70-100); HDL CHOLESTEROL 74 MG/DL (>40); LDL CHOLESTEROL 108 MG/DL (<100); NON-HDL-C 159 MG/DL; POTASSIUM SERUM 4.6 MEQ/L (3.5-5.1); SODIUM LEVEL 139 MEQ/L (136-145); TOTAL PROTEIN 7.8 GM/DL (6.4-8.2); TRIGLYCERIDES LEVEL 255 MG/DL (<150)
== END ==
LOC: M LAB 09:36
PROVIDERS: ATTEND Physician Assistant
DX: R16.2 Hepatomegaly with splenomegaly, not elsewhere classified (principal); Z13.1 Encounter for screening for diabetes mellitus

== ENCOUNTER → 2020-02-11 | Outpatient (CLI) | payer OTHER | LOC: M LAB 09:38 | PROVIDERS: ATTEND Obstetrics & Gynecology Gynecology | DX: Z15.01 Genetic susceptibility to malignant neoplasm of breast (principal); Z15.09 Genetic susceptibility to other malignant neoplasm ==

== ENCOUNTER → 2020-02-11 | Outpatient (CLI) | payer OTHER ==
[~2020-02-11] MED LIST changes: +LIQUID POLIBAR PLUS 105% w/v 1900ML BTL As Ordered ONE
[2020-02-11 11:09] LABS: FREE T4 1.14 NG/DL (0.76-1.46); THYROID STIMULATING HORMONE 2.53 uIU/ML (0.358-3.740)
--- NOTE | 2020-02-11 16:37 | REP ---
BARIUM ENEMA AIR CONTRAST The procedure was performed under the direct supervision of Dr. Farah. The images were reviewed with Dr. Farah. The manager medical film shows no organomegaly or pathological masses. The intestinal gas pattern is nonspecific. There is umbilical jewelry identified. Liquid barium and air were instilled into the colon and retrograde flow of the barium air mixture. The colon is normal in position and contour. Haustration is unremarkable throughout. There are a few mobile filling defects seen throughout the examination consistent with small stool particles from incomplete cleansing. There is free flow of contrast to the cecum. The appendix is visualized. There are no annular constricting lesions. There are no polypoid masses identified. Impression: Unremarkable double contrast barium enema examination. 0.7 minutes of fluoroscopy time was utilized for this procedure. Electronically Signed by CAMERON Early 02/11/2020 03:56 P Electronically Signed by Perfecto Farah MD 02/11/2020 04:28 P
== END ==
LOC: M LAB 09:31
PROVIDERS: ATTEND Internal Medicine Gastroenterology
DX: K58.2 Mixed irritable bowel syndrome (principal); K58.1 Irritable bowel syndrome with constipation

== ENCOUNTER → 2020-05-07 | Outpatient (CLI) | payer OTHER ==
[~2020-05-07] MED LIST changes: -LIQUID POLIBAR PLUS 105% w/v 1900ML BTL As Ordered ONE
--- NOTE | 2020-06-25 07:52 | REP ---
PELVIC ULTRASOUND TECHNIQUE: Real-time sonographic evaluation of the pelvis is performed using transabdominal and endovaginal technique. FINDINGS: Bladder measures 5.8 x 3.6 x 7.1 cm. Uterus measures 8.2 x 4.1 x 4.9 cm. Endometrial thickness is 4 mm. There is trace fluid in the endometrial canal fundally. Multiple tiny scattered echogenic foci are seen in the myometrium up to 2 mm in diameter. Junctional zone is not well defined. Findings could indicate adenomyosis. Ovaries are normal in size and echotexture, right ovary measuring 3.1 x 1.4 x 2.0 cm and left ovary 3.0 x 1.5 x 1.5 cm. There is no adnexal mass or free fluid. There is no evidence of ovarian torsion with duplex Doppler evaluation. IMPRESSION: Trace fluid in the fundal portion of the endometrial canal. Endometrial thickness is 4 mm. Ill-defined junctional zone with scattered tiny echogenic foci throughout the myometrium. Findings may represent adenomyosis. There is no adnexal mass or free fluid. MTDD
== END ==
LOC: M RAD 09:43
PROVIDERS: ATTEND Obstetrics & Gynecology Gynecology
DX: Z15.01 Genetic susceptibility to malignant neoplasm of breast (principal); Z15.09 Genetic susceptibility to other malignant neoplasm

== ENCOUNTER → 2020-05-21 | Outpatient (REF) | payer OTHER ==
[2020-05-21 13:50] LABS: APPEARANCE, URINE HAZY (CLEAR); BACTERIA, URINE AUTO NEGATIVE (NEGATIVE); BILIRUBIN, URINE AUTO NEGATIVE (NEGATIVE); BLOOD, URINE BLOOD 1+ (NEGATIVE); COLOR, URINE YELLOW (YELLOW); GLUCOSE, URINE (UA) AUTO NEGATIVE (NEGATIVE); KETONE, URINE AUTO NEGATIVE (NEGATIVE); LEUKOCYTE ESTERASE, URINE AUTO NEGATIVE (NEGATIVE); NITRITE, URINE AUTO NEGATIVE (NEGATIVE); PROTEIN, URINE AUTO NEGATIVE (NEGATIVE); RBC, URINE AUTO 0 /HPF (0-3); SQUAMOUS EPITHELIAL CELL UR AU 3 /HPF (0-6); UROBILINOGEN, URINE AUTO 0.2 mg/dL (0.0-2.0); WBC, URINE AUTO 1 /HPF (0-3)
== END ==
LOC: M LAB REF 11:52
PROVIDERS: ATTEND Physician Assistant Medical
DX: N39.0 Urinary tract infection, site not specified (principal)

== ENCOUNTER → 2020-06-28 | Outpatient (CLI) | payer OTHER ==
--- NOTE | 2020-06-28 16:00 | REPVR ---
PROCEDURE INFORMATION: Exam: MR Lumbar Spine Without Contrast. Exam date and time: 06/28/2020 2:44 PM Age: 30 years old Clinical indication: Pain; Lumbago with sciatica; Patient HX: Lbp, down into bilateral hips worse on RT side, nki, unable to access priors; Additional info: Lumbar disc degeneration, R/O hnp/stenosis TECHNIQUE: Imaging protocol: Multiplanar magnetic resonance images of the lumbar spine without intravenous contrast. COMPARISON: No relevant prior studies available. FINDINGS: Vertebrae: There is no fracture. Lumbar vertebra maintain their height and alignment. Stir images demonstrate no evidence of bone marrow edema or marrow infiltrating lesion. Spinal cord: The lower thoracic spinal cord, conus and cauda equina are normal. L1-L2: No significant disc disease. No significant spinal canal stenosis. No neural foraminal stenosis. L2-L3: Small Schmorl's nodes. No disc bulge. No central or foraminal stenosis. L3-L4: Disc dehydration and disc space narrowing. There is hyperintense signal in the posterior annulus consistent with an annular fissure. There is a 4 mm diffuse disc bulge slightly flattening the ventral aspect of the thecal sac. There is facet and ligament hypertrophy. There is minimal central stenosis. There is no foraminal stenosis. L4-L5: There is a 4 mm broad-based central to right paracentral disc protrusion slightly indenting the thecal sac. There is facet hypertrophy. There is minimal central stenosis. There is no foraminal stenosis. L5-S1: No significant disc disease. No significant spinal canal stenosis. No neural foraminal stenosis. Soft tissues: No paraspinous or intraspinal mass, hemorrhage or fluid collection. IMPRESSION: 1. No fracture. 2. Mild disc disease and facet hypertrophy detailed above. Electronically signed by: Santos Nick On 06/28/2020 15:59:39 PM
== END ==
LOC: M RAD 14:40
PROVIDERS: ATTEND Physician Assistant
DX: M51.36 Other intervertebral disc degeneration, lumbar region (principal)

== ENCOUNTER 2020-06-29 14:38 | Outpatient (RCR) | payer OTHER | END 2020-06-30 | LOC: M PT 14:38 | PROVIDERS: ATTEND Physician Assistant | DX: M51.36 Other intervertebral disc degeneration, lumbar region (principal) ==

== ENCOUNTER 2020-07-07 14:40 | Outpatient (RCR) | payer OTHER | END 2020-07-31 | LOC: M PT 14:40 | PROVIDERS: ATTEND Physician Assistant | DX: M51.36 Other intervertebral disc degeneration, lumbar region (principal) ==

== ENCOUNTER → 2020-10-07 | Outpatient (CLI) | payer OTHER | LOC: M LAB 15:34 | PROVIDERS: ATTEND Obstetrics & Gynecology Gynecology | DX: Z15.01 Genetic susceptibility to malignant neoplasm of breast (principal); Z15.09 Genetic susceptibility to other malignant neoplasm ==

== ENCOUNTER → 2020-11-30 | Outpatient (CLI) | payer OTHER ==
--- NOTE | 2020-11-30 17:01 | REP ---
INDICATION: GENETIC SUSCEPTIBILITY TO MALIGNANT NEOPLASM OF BREAST COMPARISON: 05/07/2020 TECHNIQUE: Transabdominal pelvic ultrasound followed by transvaginal examination for better evaluation of the endometrium and adnexa with color Doppler evaluation of the ovaries. FINDINGS: Bladder is unremarkable and measures 10.7 x 9.4 x 7.2 cm. Heterogeneous anteverted uterus measures 8.5 x 3.7 x 4.8 cm. The endometrial complex measures 6 mm thickness excluding a trace amount of endocervical fluid. No discrete uterine or endometrial abnormalities are appreciated. Bilateral ovaries are normal in appearance and vascularity without evidence for torsion. Right ovary measures 2.1 x 1.5 x 2.0 cm; R I = 0.76. Left ovary measures 2.0 x 1.7 x 1.8 cm; R I = 0.44. No pelvic fluid or adnexal mass lesion. IMPRESSION: Essentially normal pelvic ultrasound. <Electronically signed by Enrico Robert > 11/30/20 [id number]
== END ==
LOC: M RAD 16:12
PROVIDERS: ATTEND Obstetrics & Gynecology Gynecology
DX: Z15.01 Genetic susceptibility to malignant neoplasm of breast (principal); Z15.09 Genetic susceptibility to other malignant neoplasm

== ENCOUNTER → 2021-03-14 | Outpatient (REF) | payer OTHER ==
[2021-03-14 18:10] LABS: APPEARANCE, URINE HAZY (CLEAR); BACTERIA, URINE AUTO NEGATIVE (NEGATIVE); BILIRUBIN, URINE AUTO NEGATIVE (NEGATIVE); BLOOD, URINE BLOOD NEGATIVE (NEGATIVE); CALCIUM OXALATE CRYSTALS SMALL; COLOR, URINE YELLOW (YELLOW); GLUCOSE, URINE (UA) AUTO NEGATIVE (NEGATIVE); KETONE, URINE AUTO NEGATIVE (NEGATIVE); LEUKOCYTE ESTERASE, URINE AUTO NEGATIVE (NEGATIVE); MUCUS, URINE SMALL (NEGATIVE); NITRITE, URINE AUTO NEGATIVE (NEGATIVE); PROTEIN, URINE AUTO NEGATIVE (NEGATIVE); RBC, URINE AUTO 1 /HPF (0-3); SPECIFIC GRAVITY URINE AUTO 1.028 (1.002-1.035); SQUAMOUS EPITHELIAL CELL UR AU 8 /HPF (0-6); UROBILINOGEN, URINE AUTO 0.2 mg/dL (0.0-2.0); WBC, URINE AUTO 1 /HPF (0-3)
== END ==
LOC: M SFHCPLAZ 16:58
PROVIDERS: ATTEND Physician Assistant
DX: R82.90 Unspecified abnormal findings in urine (principal)

== ENCOUNTER → 2021-04-25 | Outpatient (CLI) | payer OTHER | LOC: M PLALAB 09:44 | PROVIDERS: ATTEND Obstetrics & Gynecology Gynecology | DX: Z15.01 Genetic susceptibility to malignant neoplasm of breast (principal); Z15.09 Genetic susceptibility to other malignant neoplasm ==

== ENCOUNTER → 2021-07-12 | Outpatient (CLI) | payer OTHER ==
--- NOTE | 2021-07-12 15:41 | REP ---
INDICATION: GENETIC SUSCEPTIBILITY COMPARISON: 11/30/2020 TECHNIQUE: Transvaginal examination of the uterus and adnexa with color Doppler evaluation of the ovaries. FINDINGS: Bladder is collapsed. Normal anteverted uterus measures 8.0 x 3.8 x 5.1 cm. The endometrial complex measures 4 mm thickness. No discrete uterine or endometrial abnormalities are appreciated. Ovaries demonstrate few scattered small chronic calcifications with normal vascularity and no evidence for torsion. Right ovary measures 2.7 x 1.1 x 1.2 cm; R I = 0.51. Left ovary measures 3.1 x 1.2 x 1.2 cm; R I = 0.46. No pelvic fluid or adnexal mass lesion IMPRESSION: Essentially normal pelvic ultrasound. <Electronically signed by Enrico Robert > 07/12/21 [id number]
== END ==
LOC: M RAD 14:48
PROVIDERS: ATTEND Obstetrics & Gynecology Gynecology
DX: Z15.01 Genetic susceptibility to malignant neoplasm of breast (principal); Z15.09 Genetic susceptibility to other malignant neoplasm

== ENCOUNTER → 2021-10-05 | Outpatient (CLI) | payer OTHER, MEDICAID ==
[2021-10-05 17:13] LABS: BASO % 0.6 % (0.0-1.0); EOS # 0.1 10^3/uL (0.0-0.5); EOS % 1.2 % (0.0-3.0); HEMATOCRIT 37.9 % (36.0-47.0); LYMPH # 2.7 10^3/uL (1.5-5.0); LYMPH % 38.9 % (24.0-44.0); MEAN CORPUSCULAR HEMOGLOBIN 30.2 pg (27.0-33.0); MEAN CORPUSCULAR HGB CONC 34.3 g/dl (32.0-36.5); MEAN CORPUSCULAR VOLUME 88.1 fl (80.0-96.0); MONO # 0.4 10^3/uL (0.0-0.8); NEUTROPHILS # 3.7 10^3/uL (1.5-8.5); PLATELET COUNT, AUTOMATED 369 10^3/uL (150-450); WHITE BLOOD COUNT 6.9 10^3/uL (4.0-10.0)
[2021-10-05 17:54] LABS: ALBUMIN 4.1 GM/DL (3.2-5.2); ALT/SGPT 32 U/L (12-78); BILIRUBIN,TOTAL 0.4 MG/DL (0.2-1.0); BLOOD UREA NITROGEN 17 MG/DL (7-18); CALCIUM LEVEL 9.2 MG/DL (8.5-10.1); CARBON DIOXIDE LEVEL 27 MEQ/L (21-32); CHLORIDE LEVEL 105 MEQ/L (98-107); CHOLESTEROL LEVEL 197 MG/DL (<200); CHOLESTEROL RISK RATIO 2.626 (<5); CREATININE FOR GFR 0.81 MG/DL (0.55-1.30); GLOMERULAR FILTRATION RATE > 60.0 (>60); GLUCOSE, FASTING 97 MG/DL (70-100); HDL CHOLESTEROL 75 MG/DL (>40); LDL CHOLESTEROL 87 MG/DL (<100); NON-HDL-C 122 MG/DL; POTASSIUM SERUM 4.6 MEQ/L (3.5-5.1); SODIUM LEVEL 139 MEQ/L (136-145); TOTAL PROTEIN 7.2 GM/DL (6.4-8.2); TRIGLYCERIDES LEVEL 175 MG/DL (<150)
== END ==
LOC: M PLALAB 15:51
PROVIDERS: ATTEND Nurse Practitioner Family
DX: E78.5 Hyperlipidemia, unspecified (principal)

== ENCOUNTER → 2021-10-14 | Outpatient (REF) | payer OTHER, MEDICAID ==
[~2021-10-14] MED LIST changes: +ALBU8.5H; +AMPH1CAP16; +PRED20TA; +TRAZ-252
== END ==
LOC: M LAB REF 17:28
PROVIDERS: ATTEND Nurse Practitioner Family
DX: D22.62 Melanocytic nevi of left upper limb, including shoulder (principal)

== ENCOUNTER 2021-10-16 18:28 | Emergency (ER) | payer OTHER, MEDICAID ==
[~2021-10-16] VITALS: Ht 160 cm; Wt 65.8 kg
[2021-10-16 18:28] VITALS: BP 148/101
[~2021-10-16 18:28] MED LIST changes: -ALBU8.5H; -AMPH1CAP16; -PRED20TA; -TRAZ-252
[2021-10-16] MEDS ORDERED: TRAZ-252 (18:55)
[2021-10-16] MEDS ORDERED: PRED20TA (18:55)
[2021-10-16] MEDS ORDERED: ALBU8.5H (18:55)
[2021-10-16] MEDS ORDERED: AMPH1CAP16 (18:55)
== END 2021-10-16 23:15 | disposition left against medical advice (07) ==
LOC: M ED 18:28
DX: Z53.29 Procedure and treatment not carried out because of patient's decision for other reasons (principal)

== ENCOUNTER → 2021-10-17 | Outpatient (CLI) | payer OTHER, MEDICAID ==
[~2021-10-17] MED LIST changes: +ALBU8.5H; +AMPH1CAP16; +PRED20TA; +TRAZ-252
== END ==
LOC: M RAD 10:09
PROVIDERS: ATTEND Physician Assistant Medical
DX: J20.9 Acute bronchitis, unspecified (principal)

== ENCOUNTER → 2021-10-17 | Outpatient (REF) | payer OTHER, MEDICAID | LOC: M LAB REF 11:18 | PROVIDERS: ATTEND Physician Assistant Medical | DX: J20.9 Acute bronchitis, unspecified (principal) ==

== ENCOUNTER → 2021-11-24 | Outpatient (CLI) | payer OTHER, MEDICAID | LOC: M LAB 12:14 | DX: Z15.01 Genetic susceptibility to malignant neoplasm of breast (principal); Z15.09 Genetic susceptibility to other malignant neoplasm ==

== ENCOUNTER → 2022-01-31 | Outpatient (REF) | payer OTHER, MEDICAID | LOC: M SFHCPLAZ 16:42 | PROVIDERS: ATTEND Physician Assistant | DX: R09.89 Other specified symptoms and signs involving the circulatory and respiratory systems (principal) ==

== ENCOUNTER → 2022-01-31 | Outpatient (CLI) | payer OTHER, MEDICAID ==
[2022-01-31 17:38] LABS: BASO % 0.5 % (0.0-1.0); EOS # 0.1 10^3/uL (0.0-0.5); EOS % 1.1 % (0.0-3.0); HEMATOCRIT 37.9 % (36.0-47.0); HEMOGLOBIN 13.5 g/dl (12.0-15.5); LYMPH # 2.3 10^3/uL (1.5-5.0); LYMPH % 36.3 % (24.0-44.0); MEAN CORPUSCULAR HEMOGLOBIN 31.9 pg (27.0-33.0); MEAN CORPUSCULAR HGB CONC 35.6 g/dl (32.0-36.5); MEAN CORPUSCULAR VOLUME 89.6 fl (80.0-96.0); MONO # 0.5 10^3/uL (0.0-0.8); MONO % 7.1 % (2.0-8.0); NEUTROPHILS # 3.5 10^3/uL (1.5-8.5); NEUTROPHILS % 54.7 % (36.0-66.0); PLATELET COUNT, AUTOMATED 381 10^3/uL (150-450); RED BLOOD COUNT 4.23 10^6/uL (4.00-5.40); WHITE BLOOD COUNT 6.3 10^3/uL (4.0-10.0)
[2022-01-31 17:51] LABS: ALBUMIN 3.8 GM/DL (3.2-5.2); ALT/SGPT 22 U/L (12-78); BILIRUBIN,TOTAL 0.3 MG/DL (0.2-1.0); BLOOD UREA NITROGEN 12 MG/DL (7-18); CALCIUM LEVEL 9.7 MG/DL (8.5-10.1); CARBON DIOXIDE LEVEL 27 MEQ/L (21-32); CHLORIDE LEVEL 107 MEQ/L (98-107); GLOMERULAR FILTRATION RATE > 60.0 (>60); GLUCOSE, FASTING 95 MG/DL (70-100); POTASSIUM SERUM 4.6 MEQ/L (3.5-5.1); SODIUM LEVEL 143 MEQ/L (136-145); TOTAL PROTEIN 7.3 GM/DL (6.4-8.2)
[2022-01-31 17:57] LABS: MONO REFLEX EBV VCA IgM NEGATIVE (NEGATIVE)
== END ==
LOC: M PLALAB 15:48
PROVIDERS: ATTEND Physician Assistant
DX: R09.89 Other specified symptoms and signs involving the circulatory and respiratory systems (principal); J98.9 Respiratory disorder, unspecified; R53.83 Other fatigue

== ENCOUNTER → 2022-02-08 | Outpatient (CLI) | payer OTHER, MEDICAID | LOC: M WHC 14:42 | PROVIDERS: ATTEND Obstetrics & Gynecology Gynecology | DX: Z15.01 Genetic susceptibility to malignant neoplasm of breast (principal) ==

== ENCOUNTER → 2022-06-01 | Outpatient (CLI) | payer OTHER, MEDICAID | LOC: M LAB 12:33 | PROVIDERS: ATTEND Obstetrics & Gynecology Gynecology | DX: Z15.01 Genetic susceptibility to malignant neoplasm of breast (principal); Z15.09 Genetic susceptibility to other malignant neoplasm ==

== ENCOUNTER → 2022-07-07 | Outpatient (CLI) | payer OTHER, MEDICAID ==
[2022-07-07 13:29] LABS: BASO % 0.6 % (0.0-1.0); EOS # 0.1 10^3/uL (0.0-0.5); EOS % 1.1 % (0.0-3.0); HEMATOCRIT 37.8 % (36.0-47.0); HEMOGLOBIN 12.7 g/dl (12.0-15.5); LYMPH # 2.7 10^3/uL (1.5-5.0); LYMPH % 37.8 % (24.0-44.0); MEAN CORPUSCULAR HEMOGLOBIN 30.7 pg (27.0-33.0); MEAN CORPUSCULAR HGB CONC 33.6 g/dl (32.0-36.5); MEAN CORPUSCULAR VOLUME 91.3 fl (80.0-96.0); MONO # 0.4 10^3/uL (0.0-0.8); MONO % 5.9 % (2.0-8.0); NEUTROPHILS # 3.8 10^3/uL (1.5-8.5); NEUTROPHILS % 53.9 % (36.0-66.0); PLATELET COUNT, AUTOMATED 363 10^3/uL (150-450); RED BLOOD COUNT 4.14 10^6/uL (4.00-5.40); WHITE BLOOD COUNT 7.1 10^3/uL (4.0-10.0)
[2022-07-07 13:52] LABS: ERYTHROCYTE SEDIMENTATION RATE 26 mm/hr (0-20)
[2022-07-07 14:25] LABS: ALBUMIN 3.8 GM/DL (3.2-5.2); ALT/SGPT 32 U/L (12-78); BILIRUBIN,TOTAL 0.3 MG/DL (0.2-1.0); BLOOD UREA NITROGEN 10 MG/DL (7-18); C REACTIVE PROTEIN QUANTITATIV 0.39 MG/DL (0.00-0.30); CALCIUM LEVEL 9.3 MG/DL (8.5-10.1); CARBON DIOXIDE LEVEL 26 MEQ/L (21-32); CHLORIDE LEVEL 105 MEQ/L (98-107); CHOLESTEROL LEVEL 183 MG/DL (<200); CHOLESTEROL RISK RATIO 2.951 (<5); CREATININE FOR GFR 0.82 MG/DL (0.55-1.30); GLOMERULAR FILTRATION RATE > 60.0 (>60); GLUCOSE, FASTING 106 MG/DL (70-100); HDL CHOLESTEROL 62 MG/DL (>40); LDL CHOLESTEROL 92 MG/DL (<100); NON-HDL-C 121 MG/DL; POTASSIUM SERUM 4.2 MEQ/L (3.5-5.1); SODIUM LEVEL 136 MEQ/L (136-145); TOTAL PROTEIN 7.3 GM/DL (6.4-8.2); TRIGLYCERIDES LEVEL 144 MG/DL (<150)
== END ==
LOC: M PLALAB 10:33
PROVIDERS: ATTEND Nurse Practitioner Family
DX: E78.5 Hyperlipidemia, unspecified (principal); R59.0 Localized enlarged lymph nodes

== ENCOUNTER → 2022-09-05 | Outpatient (CLI) | payer OTHER, MEDICAID ==
[2022-09-05 13:50] LABS: BASO % 0.6 % (0.0-1.0); EOS # 0.1 10^3/uL (0.0-0.5); EOS % 1.1 % (0.0-3.0); HEMATOCRIT 41.9 % (36.0-47.0); HEMOGLOBIN 14.5 g/dl (12.0-15.5); LYMPH # 2.5 10^3/uL (1.5-5.0); LYMPH % 38.9 % (24.0-44.0); MEAN CORPUSCULAR HEMOGLOBIN 30.3 pg (27.0-33.0); MEAN CORPUSCULAR HGB CONC 34.6 g/dl (32.0-36.5); MEAN CORPUSCULAR VOLUME 87.5 fl (80.0-96.0); MONO # 0.4 10^3/uL (0.0-0.8); NEUTROPHILS # 3.4 10^3/uL (1.5-8.5); NEUTROPHILS % 52.9 % (36.0-66.0); PLATELET COUNT, AUTOMATED 331 10^3/uL (150-450); RED BLOOD COUNT 4.79 10^6/uL (4.00-5.40); WHITE BLOOD COUNT 6.5 10^3/uL (4.0-10.0)
[2022-09-05 14:14] LABS: LIPASE 30 U/L (12-53)
[2022-09-05 14:16] LABS: ALBUMIN 4.1 G/DL (3.2-5.2); ALKALINE PHOSPHATASE 62 U/L (46-116); ALT/SGPT 32 U/L (7.0-40); AST/SGOT 23 U/L (<34); BILIRUBIN,TOTAL 0.4 MG/DL (0.3-1.2); BLOOD UREA NITROGEN 18 MG/DL (9-23); CALCIUM LEVEL 9.4 MG/DL (8.5-10.1); CARBON DIOXIDE LEVEL 27 MMOL/L (20-31); CHLORIDE LEVEL 101 MMOL/L (98-107); CREATININE FOR GFR 0.85 MG/DL (0.55-1.30); GLOMERULAR FILTRATION RATE > 60.0 (>60); GLUCOSE, FASTING 100 MG/DL (60-100); POTASSIUM SERUM 4.4 MMOL/L (3.5-5.1); SODIUM LEVEL 138 MMOL/L (136-145); TOTAL PROTEIN 7.7 G/DL (5.7-8.2)
[2022-09-05 14:34] LABS: ERYTHROCYTE SEDIMENTATION RATE 9 mm/hr (0-20)
== END ==
LOC: M RAD 12:24
PROVIDERS: ATTEND Physician Assistant
DX: R07.81 Pleurodynia (principal); R10.12 Left upper quadrant pain; N63.0 Unspecified lump in unspecified breast; R53.83 Other fatigue

== ENCOUNTER → 2022-09-06 | Outpatient (CLI) | payer OTHER, MEDICAID ==
[~2022-09-06] MED LIST changes: +GASTROGRAFIN SOLUTION 30ML As Ordered ONE; +ISOVUE-370 76% 100ML VIAL As Ordered ONE
== END ==
LOC: M RAD 13:58
PROVIDERS: ATTEND Physician Assistant
DX: R10.12 Left upper quadrant pain (principal); R07.81 Pleurodynia

== ENCOUNTER → 2022-10-17 | Outpatient (REF) | payer OTHER, MEDICAID ==
[~2022-10-17] MED LIST changes: -GASTROGRAFIN SOLUTION 30ML As Ordered ONE; -ISOVUE-370 76% 100ML VIAL As Ordered ONE
[2022-10-17 21:09] LABS: APPEARANCE, URINE MANUAL CLEAR (CLEAR); COLOR, URINE MANUAL LT YELLOW (YELLOW); PROTEIN, URINE MANUAL NEGATIVE (NEGATIVE); SPECIFIC GRAVITY,URINE MANUAL 1.015 (1.002-1.035)
[2022-10-17 21:10] LABS: BILIRUBIN, URINE MANUAL NEGATIVE (NEGATIVE); BLOOD URINE MANUAL NEGATIVE (NEGATIVE); GLUCOSE, URINE (UA) MANUAL NEGATIVE (NEGATIVE); KETONE, URINE MANUAL NEGATIVE (NEGATIVE); LEUKOCYTE ESTERASE, URINE MAN NEGATIVE (NEGATIVE); NITRITE, URINE MANUAL NEGATIVE (NEGATIVE); UROBILINOGEN, URINE MANUAL NORMAL (NORMAL)
== END ==
LOC: M LAB REF 20:57
PROVIDERS: ATTEND Physician Assistant Medical
DX: N39.0 Urinary tract infection, site not specified (principal)

== ENCOUNTER → 2022-10-19 | Outpatient (REF) | payer OTHER, MEDICAID ==
[2022-10-19 18:12] LABS: APPEARANCE, URINE MANUAL CLEAR (CLEAR); BILIRUBIN, URINE MANUAL NEGATIVE (NEGATIVE); BLOOD URINE MANUAL TRACE (NEGATIVE); COLOR, URINE MANUAL YELLOW (YELLOW); GLUCOSE, URINE (UA) MANUAL NEGATIVE (NEGATIVE); KETONE, URINE MANUAL NEGATIVE (NEGATIVE); LEUKOCYTE ESTERASE, URINE MAN NEGATIVE (NEGATIVE); NITRITE, URINE MANUAL NEGATIVE (NEGATIVE); PROTEIN, URINE MANUAL NEGATIVE (NEGATIVE); SPECIFIC GRAVITY,URINE MANUAL 1.025 (1.002-1.035); UROBILINOGEN, URINE MANUAL NORMAL (NORMAL)
[2022-10-19 18:13] LABS: BASO % 0.5 % (0.0-1.0); EOS % 0.7 % (0.0-3.0); HEMATOCRIT 41.2 % (36.0-47.0); HEMOGLOBIN 14.1 g/dl (12.0-15.5); LYMPH % 34.3 % (24.0-44.0); MEAN CORPUSCULAR HEMOGLOBIN 30.5 pg (27.0-33.0); MEAN CORPUSCULAR HGB CONC 34.2 g/dl (32.0-36.5); MEAN CORPUSCULAR VOLUME 89.2 fl (80.0-96.0); MONO # 0.4 10^3/uL (0.0-0.8); MONO % 6.6 % (2.0-8.0); NEUTROPHILS # 3.3 10^3/uL (1.5-8.5); NEUTROPHILS % 57.7 % (36.0-66.0); PLATELET COUNT, AUTOMATED 343 10^3/uL (150-450); RED BLOOD COUNT 4.62 10^6/uL (4.00-5.40); WHITE BLOOD COUNT 5.8 10^3/uL (4.0-10.0)
[2022-10-19 19:07] LABS: HYALINE CAST, URINE 0-1 /lpf (0-1); SQUAMOUS EPITHELIAL CELL URINE SMALL AMOUNT /hpf (SMALL AMT)
[2022-10-19 19:08] LABS: WBC, URINE 0-1 /hpf (0-3)
[2022-10-19 19:09] LABS: BACTERIA, URINE SMALL AMOUNT; RBC, URINE 0-1 /hpf (0-3)
== END ==
LOC: M LAB REF 16:29
PROVIDERS: ATTEND Physician Assistant Medical
DX: K14.9 Disease of tongue, unspecified (principal)

== ENCOUNTER → 2022-12-29 | Outpatient (CLI) | payer OTHER, MEDICAID | LOC: M PLALAB 15:50 | PROVIDERS: ATTEND Obstetrics & Gynecology Gynecology | DX: Z15.01 Genetic susceptibility to malignant neoplasm of breast (principal); Z15.09 Genetic susceptibility to other malignant neoplasm ==

== ENCOUNTER → 2022-12-29 | Outpatient (CLI) | payer OTHER, MEDICAID | LOC: M WHC 15:17 | PROVIDERS: ATTEND Obstetrics & Gynecology Gynecology | DX: Z15.01 Genetic susceptibility to malignant neoplasm of breast (principal); Z15.09 Genetic susceptibility to other malignant neoplasm ==

== ENCOUNTER → 2023-05-14 | Outpatient (CLI) | payer OTHER, MEDICAID ==
[2023-05-14 15:28] LABS: APPEARANCE, URINE HAZY (CLEAR); BACTERIA, URINE AUTO NEGATIVE (NEGATIVE); BILIRUBIN, URINE AUTO NEGATIVE (NEGATIVE); BLOOD, URINE BLOOD NEGATIVE (NEGATIVE); CALCIUM OXALATE CRYSTALS SMALL; COLOR, URINE YELLOW (YELLOW); GLUCOSE, URINE (UA) AUTO NEGATIVE (NEGATIVE); KETONE, URINE AUTO TRACE mg/dL (NEGATIVE); LEUKOCYTE ESTERASE, URINE AUTO NEGATIVE (NEGATIVE); MUCUS, URINE SMALL (NEGATIVE); NITRITE, URINE AUTO NEGATIVE (NEGATIVE); PROTEIN, URINE AUTO NEGATIVE (NEGATIVE); RBC, URINE AUTO 0 /HPF (0-3); SPECIFIC GRAVITY URINE AUTO 1.028 (1.002-1.035); SQUAMOUS EPITHELIAL CELL UR AU 6 /HPF (0-6); WBC, URINE AUTO 0 /HPF (0-3)
[2023-05-14 15:35] LABS: HEMATOCRIT 40.3 % (36.0-47.0); HEMOGLOBIN 13.7 g/dl (12.0-15.5); MEAN CORPUSCULAR VOLUME 88.4 fl (80.0-96.0); PLATELET COUNT, AUTOMATED 305 10^3/uL (150-450); RED BLOOD COUNT 4.56 10^6/uL (4.00-5.40); WHITE BLOOD COUNT 6.3 10^3/uL (4.0-10.0)
[2023-05-14 16:47] LABS: INR 0.92; PARTIAL THROMBOPLASTIN TIME 25.1 SECONDS (24.8-34.2); PROTHROMBIN TIME 12.1 SECONDS (12.5-14.5)
[2023-05-14 17:17] LABS: ALBUMIN 3.9 G/DL (3.2-5.2); ALKALINE PHOSPHATASE 70 U/L (46-116); ALT/SGPT 24 U/L (7.0-40); AST/SGOT 10 U/L (<34); BILIRUBIN,TOTAL 0.4 MG/DL (0.3-1.2); BLOOD UREA NITROGEN 10 MG/DL (9-23); CALCIUM LEVEL 9.8 MG/DL (8.5-10.1); CARBON DIOXIDE LEVEL 29 MMOL/L (20-31); CHLORIDE LEVEL 102 MMOL/L (98-107); CHOLESTEROL LEVEL 191 MG/DL (<200); CHOLESTEROL RISK RATIO 2.28 (<5); CREATININE FOR GFR 0.72 MG/DL (0.55-1.30); GLOMERULAR FILTRATION RATE > 60.0 (>60); GLUCOSE, FASTING 98 MG/DL (60-100); HDL CHOLESTEROL 83.7 MG/DL (>40); NON-HDL-C 107.3 MG/DL; POTASSIUM SERUM 4.7 MMOL/L (3.5-5.1); SODIUM LEVEL 139 MMOL/L (136-145); TOTAL PROTEIN 7.4 G/DL (5.7-8.2)
[2023-05-14 17:27] LABS: LDL CHOLESTEROL 87.5 MG/DL (<100); TRIGLYCERIDES LEVEL 99 MG/DL (<150)
[2023-05-14 17:37] LABS: BASO # 0.1 10^3/uL (0.0-0.2); BASO % 0.8 % (0.0-1.0); EOS % 0.6 % (0.0-3.0); LYMPH # 2.2 10^3/uL (1.5-5.0); LYMPH % 34.4 % (24.0-44.0); MONO # 0.4 10^3/uL (0.0-0.8); MONO % 6.2 % (2.0-8.0); NEUTROPHILS # 3.6 10^3/uL (1.5-8.5); NEUTROPHILS % 57.7 % (36.0-66.0)
[2023-05-14 17:47] LABS: ATYPICAL LYMPH 7 % (0-5); LYMPHOCYTES 23 % (16-44); MONOCYTES 3 % (0-5); NEUTROPHILS 66 % (28-66); PLATELET ESTIMATE NORMAL (NORMAL)
== END ==
LOC: M PLAIMG 13:07
PROVIDERS: ATTEND Nurse Practitioner Family
DX: E78.5 Hyperlipidemia, unspecified (principal); J45.990 Exercise induced bronchospasm; Z13.6 Encounter for screening for cardiovascular disorders

== ENCOUNTER 2023-06-09 13:03 | Emergency (ER) | payer OTHER, MEDICAID ==
[~2023-06-09] VITALS: Ht 160 cm; Wt 62.7 kg
[2023-06-09] MEDS ORDERED: DESO1TAB27 (13:56)
[2023-06-09] MEDS ORDERED: AMIT25TA19 (13:56)
[2023-06-09] MEDS ORDERED: ADDE20CA3 (13:56)
[2023-06-09 15:47] LABS: BASO % 0.6 % (0.0-1.0); EOS # 0.2 10^3/uL (0.0-0.5); LYMPH # 1.7 10^3/uL (1.5-5.0); LYMPH % 36.1 % (24.0-44.0); MEAN CORPUSCULAR HEMOGLOBIN 30.5 pg (27.0-33.0); MEAN CORPUSCULAR HGB CONC 33.3 g/dl (32.0-36.5); MEAN CORPUSCULAR VOLUME 91.4 fl (80.0-96.0); MONO # 0.3 10^3/uL (0.0-0.8); MONO % 7.1 % (2.0-8.0); NEUTROPHILS # 2.4 10^3/uL (1.5-8.5); NEUTROPHILS % 50.2 % (36.0-66.0); PLATELET COUNT, AUTOMATED 464 10^3/uL (150-450); RED BLOOD COUNT 3.94 10^6/uL (4.00-5.40); WHITE BLOOD COUNT 4.8 10^3/uL (4.0-10.0)
[2023-06-09 16:01] LABS: LIPASE 26 U/L (12-53)
[2023-06-09 16:04] LABS: ALBUMIN 3.3 G/DL (3.2-5.2); ALKALINE PHOSPHATASE 75 U/L (46-116); ALT/SGPT 29 U/L (7.0-40); AST/SGOT 18 U/L (<34); BILIRUBIN,DIRECT 0.1 MG/DL (<0.4); BILIRUBIN,TOTAL 0.4 MG/DL (0.3-1.2); BLOOD UREA NITROGEN 6 MG/DL (9-23); CALCIUM LEVEL 9.3 MG/DL (8.5-10.1); CARBON DIOXIDE LEVEL 29 MMOL/L (20-31); CHLORIDE LEVEL 108 MMOL/L (98-107); CREATININE FOR GFR 0.69 MG/DL (0.55-1.30); GLOMERULAR FILTRATION RATE > 60.0 (>60); GLUCOSE, FASTING 99 MG/DL (60-100); POTASSIUM SERUM 4.3 MMOL/L (3.5-5.1); SODIUM LEVEL 143 MMOL/L (136-145); TOTAL PROTEIN 6.6 G/DL (5.7-8.2)
[2023-06-09 16:12] LABS: HCG, SERUM QUALITATIVE NEGATIVE (NEGATIVE)
[2023-06-09] MEDS ORDERED: ONDANSETRON 4MG 2ML VIAL IV ONE (17:25)
[2023-06-09] MEDS ORDERED: MORPHINE 4 MG/ML 1ML VIAL IV ONE (17:25)
[2023-06-09] MEDS ORDERED: ISOVUE-370 76% 100ML VIAL As Ordered ONE (17:50)
[2023-06-09 18:13] LABS: ERYTHROCYTE SEDIMENTATION RATE 24 mm/hr (0-20)
[2023-06-09 18:53] LABS: RSV AMPLIFICATION NEGATIVE (NEGATIVE)
[2023-06-09] MEDS ORDERED: PIPERACILLIN/TAZOBACTAM SOD 3.375 GM in D5W MINI-BAG PLUS 50 ML IV ONE (18:55)
[2023-06-09 22:31] VITALS: BP 128/84; TEMP 97.8; O2SAT 99
== END 2023-06-09 22:34 | disposition short-term general hospital (02) ==
LOC: M ED 13:03
DX: L02.211 Cutaneous abscess of abdominal wall (principal); J45.909 Unspecified asthma, uncomplicated; F90.9 Attention-deficit hyperactivity disorder, unspecified type
CPT/HCPCS: 74177; 80048; 80076; 81001; 83605; 83690; 84703; 85025; 85652; 86140; 87040; 87631; 96365; 96375; 99284; J2543; Q9967

== ENCOUNTER → 2023-08-14 | Outpatient (REF) | payer OTHER, MEDICAID ==
[~2023-08-14] MED LIST changes: +ADDE20CA3; +AMIT25TA19; +DESO1TAB27
== END ==
LOC: M SFHCPLAZ 13:22
PROVIDERS: ATTEND Student in an Organized Health Care Education/Training Program
DX: J02.9 Acute pharyngitis, unspecified (principal)

== ENCOUNTER → 2023-10-10 | Outpatient (CLI) | payer OTHER, MEDICAID | LOC: M PLAIMG 11:44 | PROVIDERS: ATTEND Nurse Practitioner Family | DX: M53.3 Sacrococcygeal disorders, not elsewhere classified (principal); M47.816 Spondylosis without myelopathy or radiculopathy, lumbar region ==

== ENCOUNTER 2024-01-02 08:36 | Emergency (ER) | payer OTHER, MEDICAID ==
[~2024-01-02] VITALS: Ht 160 cm; Wt 65.9 kg
[2024-01-02] MEDS ORDERED: CIPR500T39 (08:47)
[2024-01-02] MEDS ORDERED: ONDA4TAB6 (08:47)
[2024-01-02] MEDS ORDERED: PEPC1TAB5 (08:47)
[2024-01-02] MEDS ORDERED: TIZA2TA (08:47)
[2024-01-02] MEDS ORDERED: METR-265 (08:47)
[2024-01-02] MEDS ORDERED: DICY20TA20 (08:47)
[2024-01-02 09:19] LABS: BASO % 0.6 % (0.0-1.0); EOS # 0.1 10^3/uL (0.0-0.5); HEMATOCRIT 41.5 % (36.0-47.0); HEMOGLOBIN 14.5 g/dl (12.0-15.5); LYMPH # 1.9 10^3/uL (1.5-5.0); LYMPH % 37.3 % (24.0-44.0); MEAN CORPUSCULAR HEMOGLOBIN 31.3 pg (27.0-33.0); MEAN CORPUSCULAR HGB CONC 34.9 g/dl (32.0-36.5); MEAN CORPUSCULAR VOLUME 89.4 fl (80.0-96.0); MONO # 0.4 10^3/uL (0.0-0.8); MONO % 7.9 % (2.0-8.0); NEUTROPHILS # 2.6 10^3/uL (1.5-8.5); NEUTROPHILS % 51.8 % (36.0-66.0); PLATELET COUNT, AUTOMATED 298 10^3/uL (150-450); RED BLOOD COUNT 4.64 10^6/uL (4.00-5.40)
[2024-01-02 09:41] LABS: BLOOD UREA NITROGEN 14 MG/DL (9-23); CALCIUM LEVEL 9.3 MG/DL (8.5-10.1); CARBON DIOXIDE LEVEL 23 MMOL/L (20-31); CHLORIDE LEVEL 107 MMOL/L (98-107); CK-MB VALUE MASS < 1.0 NG/ML (<3.6); CREATININE FOR GFR 0.69 MG/DL (0.55-1.30); GLOMERULAR FILTRATION RATE > 60.0 (>60); GLUCOSE, FASTING 105 MG/DL (60-100); POTASSIUM SERUM 4.2 MMOL/L (3.5-5.1); SODIUM LEVEL 138 MMOL/L (136-145)
[2024-01-02 09:44] LABS: HCG, SERUM QUALITATIVE NEGATIVE (NEGATIVE)
[2024-01-02 09:45] LABS: CPK CREATINE PHOSPHOKINASE 74 U/L (34-145); MB/CK RELATIVE INDEX 1.35 (< OR =4)
[2024-01-02] MEDS: NS 1,000 ML IV ONE (11:58)
[2024-01-02] MEDS: METOCLOPRAMIDE INJ 10MG/2ML VIAL IV ONE (11:59)
[2024-01-02] MEDS: dexAMETHasone 20MG/5ML VIAL IV ONE (11:59)
[2024-01-02] MEDS: diphenhydrAMINE 50MG/ML VIAL IV ONE (11:59)
[2024-01-02 12:36] LABS: CPK CREATINE PHOSPHOKINASE 52 U/L (34-145)
[2024-01-02 12:37] LABS: CK-MB VALUE MASS < 1.0 NG/ML (<3.6); MB/CK RELATIVE INDEX 1.92 (< OR =4)
[2024-01-02 12:40] LABS: FREE T4 1.17 NG/DL (0.89-1.76)
[2024-01-02] MEDS ORDERED: HOLTER MONITOR XX (13:57)
[2024-01-02 14:09] VITALS: BP 138/72; TEMP 98.1; O2SAT 99
== END 2024-01-02 14:11 | disposition home or self-care (01) ==
LOC: M ED 10:41
DX: R00.0 Tachycardia, unspecified (principal); R42 Dizziness and giddiness; G43.909 Migraine, unspecified, not intractable, without status migrainosus; J45.909 Unspecified asthma, uncomplicated; F10.10 Alcohol abuse, uncomplicated; Z79.899 Other long term (current) drug therapy
CPT/HCPCS: 70450; 71045; 80048; 82550; 82553; 83735; 84439; 84443; 84484; 84703; 85025; 85379; 85730; 87486; 87581; 87633; 87798; 93005; 93041; 96361; 96374; 99284; J1100; J1200; J2765

== ENCOUNTER → 2024-01-03 | Outpatient (CLI) | payer OTHER, MEDICAID ==
[~2024-01-03] MED LIST changes: +CIPR500T39; +DICY20TA20; +HOLTER MONITOR XX; +METR-265; +ONDA4TAB6; +PEPC1TAB5; +TIZA2TA
== END ==
LOC: M EKG 08:17
PROVIDERS: ATTEND Physician Assistant Medical
DX: R00.2 Palpitations (principal)

== ENCOUNTER → 2024-01-09 | Outpatient (REF) | payer OTHER, MEDICAID | LOC: M SFHCPLAZ 10:14 | PROVIDERS: ATTEND Nurse Practitioner Family | DX: R19.7 Diarrhea, unspecified (principal) ==

== ENCOUNTER → 2024-01-31 | Outpatient (CLI) | payer OTHER, MEDICAID ==
[~2024-01-31] MED LIST changes: +ISOVUE-370 76% 100ML VIAL As Ordered ONE
== END ==
LOC: M RAD 07:41
PROVIDERS: ATTEND Physician Assistant
DX: R06.02 Shortness of breath (principal); J84.10 Pulmonary fibrosis, unspecified
CPT/HCPCS: 71275; Q9967

== ENCOUNTER → 2024-03-21 | Outpatient (REF) | payer OTHER, MEDICAID ==
[~2024-03-21] MED LIST changes: -ISOVUE-370 76% 100ML VIAL As Ordered ONE; +ONDA-282; -ONDA4TAB6
[2024-03-26 04:09] LABS: AMPHETAMINE SCREEN, URINE See Final Results ng/mL (Cutoff=1000); AMPHETAMINE, URINE GC/MS 2520 ng/mL (Cutoff=500); AMPHETAMINES , URINE Positive (Cutoff=1000); BARBITURATES SCREEN, URINE Negative ng/mL (Cutoff=200); BENZODIAZEPINES, URINE SCREEN Negative ng/mL (Cutoff=200); CANNABINOID SCREEN, URINE Negative ng/mL (Cutoff=20); COCAINE SCREEN, URINE Negative ng/mL (Cutoff=300); CREATININE, URINE 119.3 mg/dL (20.0-300.0); METHADONE, URINE SCREEN Negative ng/mL (Cutoff=300); METHAMPHETAMINE, URINE Negative (Cutoff=500); OPIATE SCREEN, URINE Negative ng/mL (Cutoff=300); OXYCODONE, SCREEN, URINE Negative ng/mL (Cutoff=100); PCP SCREEN, URINE Negative ng/mL (Cutoff=25); SPECIFIC GRAVITY, URINE 1.019 (.); pH, URINE 6.5 (4.5-8.9)
== END ==
LOC: M SFHCPLAZ 17:12
PROVIDERS: ATTEND Nurse Practitioner Family
DX: F90.0 Attention-deficit hyperactivity disorder, predominantly inattentive type (principal)

== ENCOUNTER → 2024-06-12 | Outpatient (REF) | payer OTHER, MEDICAID | LOC: M SFHCPLAZ 13:01 | PROVIDERS: ATTEND Physician Assistant Medical | DX: R19.7 Diarrhea, unspecified (principal) ==

== ENCOUNTER → 2024-08-06 | Outpatient (CLI) | payer OTHER, MEDICAID ==
[2024-08-06 16:04] LABS: FREE T4 1.43 NG/DL (0.89-1.76); IMMUNOGLOBULIN A 169.8 MG/DL (40-350); THYROID STIMULATING HORMONE 0.639 uIU/ML (0.55-4.78)
== END ==
LOC: M LAB 15:04
PROVIDERS: ATTEND Physician Assistant Medical
DX: R14.0 Abdominal distension (gaseous) (principal); K58.1 Irritable bowel syndrome with constipation

== ENCOUNTER → 2024-10-14 | Outpatient (REF) | payer OTHER, MEDICAID | LOC: M SFHCPLAZ 10:01 | PROVIDERS: ATTEND Nurse Practitioner Family | DX: F90.0 Attention-deficit hyperactivity disorder, predominantly inattentive type (principal) ==

== ENCOUNTER → 2024-10-28 | Outpatient (CLI) | payer OTHER, MEDICAID ==
[~2024-10-28] MED LIST changes: +ADDE20CA3 PO; +BOTO200I AD; +DESO1TAB27 PO; +MIRA3350 PO; +OMEP1CAP73 PO; +TIZA2CAP PO
[2024-10-28 16:21] LABS: BASO % 0.6 % (0.0-1.0); EOS # 0.1 10^3/uL (0.0-0.5); LYMPH # 1.8 10^3/uL (1.5-5.0); LYMPH % 35.9 % (24.0-44.0); MEAN CORPUSCULAR HEMOGLOBIN 30.7 pg (27.0-33.0); MEAN CORPUSCULAR HGB CONC 35.1 g/dl (32.0-36.5); MEAN CORPUSCULAR VOLUME 87.3 fl (80.0-96.0); MONO # 0.3 10^3/uL (0.0-0.8); MONO % 6.6 % (2.0-8.0); NEUTROPHILS # 2.8 10^3/uL (1.5-8.5); NEUTROPHILS % 55.7 % (36.0-66.0); PLATELET COUNT, AUTOMATED 284 10^3/uL (150-450); RED BLOOD COUNT 4.24 10^6/uL (4.00-5.40)
[2024-10-28 16:58] LABS: THYROID STIMULATING HORMONE 1.518 uIU/ML (0.55-4.78)
[2024-10-28 16:59] LABS: ALBUMIN 3.7 G/DL (3.2-5.2); ALKALINE PHOSPHATASE 71 U/L (35-104); ALT/SGPT 19 U/L (7.0-40); AST/SGOT 12 U/L (<34); BILIRUBIN,TOTAL 0.3 MG/DL (0.3-1.2); BLOOD UREA NITROGEN 13 MG/DL (9-23); CALCIUM LEVEL 9.6 MG/DL (8.5-10.1); CARBON DIOXIDE LEVEL 27 MMOL/L (20-31); CHLORIDE LEVEL 106 MMOL/L (98-107); CHOLESTEROL LEVEL 212 MG/DL (<200); CHOLESTEROL RISK RATIO 3.54 (<5); CREATININE FOR GFR 0.71 MG/DL (0.55-1.30); FREE T4 1.37 NG/DL (0.89-1.76); GLOMERULAR FILTRATION RATE > 60.0 (>60); GLUCOSE, FASTING 96 MG/DL (60-100); HDL CHOLESTEROL 59.8 MG/DL (>40); LDL CHOLESTEROL 114.6 MG/DL (<100); NON-HDL-C 152.2 MG/DL; POTASSIUM SERUM 4.2 MMOL/L (3.5-5.1); SODIUM LEVEL 142 MMOL/L (136-145); TOTAL PROTEIN 7.1 G/DL (5.7-8.2); TRIGLYCERIDES LEVEL 188 MG/DL (<150)
== END ==
LOC: M LAB 16:00
PROVIDERS: ATTEND Nurse Practitioner Family
DX: Z00.00 Encounter for general adult medical examination without abnormal findings (principal); F90.0 Attention-deficit hyperactivity disorder, predominantly inattentive type; Z13.220 Encounter for screening for lipoid disorders

== ENCOUNTER → 2024-12-08 | Outpatient (CLI) | payer OTHER, MEDICAID ==
[2024-12-08 16:25] LABS: C REACTIVE PROTEIN QUANTITATIV < 0.50 MG/DL (<1.0); IRON (FE) 62 UG/DL (50-170); PERCENT SATURATION 16.5 % (13.2-45.0); TOTAL IRON BINDING CAPACITY 376 UG/DL (250-425)
[2024-12-08 16:29] LABS: T UPTAKE 27.9 % (22.5-37.0); THYROID STIMULATING HORMONE 0.521 uIU/ML (0.55-4.78); THYROXINE (T4) 10.6 UG/DL (4.5-10.9)
[2024-12-10 18:47] LABS: ANA SCREEN, IFA NEGATIVE (NEGATIVE)
== END ==
LOC: M LAB 15:29
PROVIDERS: ATTEND Nurse Practitioner Family
DX: L60.3 Nail dystrophy (principal)

== ENCOUNTER → 2024-12-19 | Outpatient (CLI) | payer OTHER, MEDICAID ==
[2024-12-19 17:14] LABS: THYROID STIMULATING HORMONE 1.416 uIU/ML (0.55-4.78)
[2024-12-19 17:15] LABS: FREE T4 1.28 NG/DL (0.89-1.76)
== END ==
LOC: M PLALAB 15:12
PROVIDERS: ATTEND Nurse Practitioner Family
DX: R94.6 Abnormal results of thyroid function studies (principal)

== ENCOUNTER 2025-02-12 12:20 | Day surgery (SDC) | payer OTHER, MEDICAID ==
[~2025-02-12] VITALS: Ht 160 cm; Wt 62.6 kg
[~2025-02-12 12:20] MED LIST changes: +AMPH1TAB2 PO
[2025-02-12] MEDS ORDERED: GLYCOPYRROLATE INJ 0.2 MG/ML 2 ML VIAL As Ordered ONE (12:28)
[2025-02-12] MEDS ORDERED: propofoL 200 MG/20 ML VIAL As Ordered ONE (12:28)
[2025-02-12] MEDS ORDERED: MIDAZOLAM INJ 2MG/2ML VIAL As Ordered ONE (14:09)
[2025-02-12 14:39] VITALS: TEMP 97.3
[2025-02-12 15:03] VITALS: BP 115/79; O2SAT 100
== END 2025-02-12 15:09 | disposition home or self-care (01) ==
LOC: M OPP 12:20
PROVIDERS: ATTEND Internal Medicine Gastroenterology
DX: R93.3 Abnormal findings on diagnostic imaging of other parts of digestive tract (principal); K58.1 Irritable bowel syndrome with constipation; K92.1 Melena; K64.8 Other hemorrhoids; R12 Heartburn; R10.84 Generalized abdominal pain; Z79.899 Other long term (current) drug therapy
CPT/HCPCS: 43239; 45380; 88305; J1596; J2250

== ENCOUNTER → 2025-06-12 | Outpatient (CLI) | payer OTHER, MEDICAID ==
[~2025-06-12] MED LIST changes: +ACET-683 PO; -BOTO200I AD; +BOTO200I INJ; +CYCL-707 PO; +DEXTROAMP-AMPHETAMIN; +IBUP600T42; +IBUP600T42 PO; +MEDR4PAK PO; +PERC5TAB12 PO
[2025-06-12 14:06] LABS: BASO # 0.0 10^3/uL (0.0-0.2); BASO % 0.4 % (0.0-1.0); EOS # 0.1 10^3/uL (0.0-0.5); EOS % 1.0 % (0.0-3.0); LYMPH # 2.2 10^3/uL (1.5-5.0); LYMPH % 33.0 % (24.0-44.0); MONO # 0.5 10^3/uL (0.0-0.8); MONO % 7.4 % (2.0-8.0); NEUTROPHILS # 3.9 10^3/uL (1.5-8.5); NEUTROPHILS % 57.9 % (36.0-66.0); PLATELET COUNT, AUTOMATED 294 10^3/uL (150-450)
[2025-06-12 14:20] LABS: ALT/SGPT 51 U/L (7.0-40); AST/SGOT 26 U/L (<34); CALCIUM LEVEL 10.0 MG/DL (8.5-10.1); CARBON DIOXIDE LEVEL 28 MMOL/L (20-31); CHLORIDE LEVEL 104 MMOL/L (98-107); CHOLESTEROL LEVEL 222 MG/DL (<200); CHOLESTEROL RISK RATIO 4.01 (<5); CREATININE FOR GFR 0.74 MG/DL (0.55-1.30); GLOMERULAR FILTRATION RATE > 90.0 (>60); LDL CHOLESTEROL 147.5 MG/DL (<100); MAGNESIUM LEVEL 1.9 MG/DL (1.8-2.4); NON-HDL-C 166.7 MG/DL; POTASSIUM SERUM 5.3 MMOL/L (3.5-5.1); SODIUM LEVEL 140 MMOL/L (136-145); TRIGLYCERIDES LEVEL 96 MG/DL (<150)
[2025-06-12 14:22] LABS: FREE T4 1.34 NG/DL (0.89-1.76)
== END ==
LOC: M PLALAB 10:00
PROVIDERS: ATTEND Nurse Practitioner Family
DX: I10 Essential (primary) hypertension (principal); R53.83 Other fatigue

== ENCOUNTER → 2025-07-06 | Outpatient (CLI) | payer OTHER, MEDICAID | LOC: M RAD 15:03 | PROVIDERS: ATTEND Obstetrics & Gynecology | DX: R93.89 Abnormal findings on diagnostic imaging of other specified body structures (principal); Z13.71 Encounter for nonprocreative screening for genetic disease carrier status ==